=== PATIENT | female | born 1970 | race Caucasian/White ===

== ENCOUNTER 2021-08-18 22:43 | Emergency (ER) | payer MEDICAID ==
[~2021-08-18] VITALS: Ht 167.6 cm; Wt 76.2 kg
[2021-08-18 22:49] VITALS: BP 118/64
--- NOTE | 2021-08-18 22:49 | NUR ---
to bed ambulatory
--- NOTE | 2021-08-18 23:14 | NUR ---
50 YO F BIB SELF WITH C/C OF LOWER ABD PAIN 8/10, SHARP, BURNING [id number]. PT STATES THE PAIN COMES AND GOES. +NAUSEA, PT ALTERNATES BETWEEN CONSTIPATION AND DIARRHEA. DENIES VOMITING. PT STATES SHE HAS AN INCREASE FREQUENCY AND URGENCY TO URINATE, DENIES BURNING BUT HAS A SENSATION. PT STATES SHE WAS TOLD SHE HAS GALLBLADDER STONES. DENIES FEVER. ABD IS SENSITIVE TO TOUCH AND DISTENDED. UA COLLECTED. PT STATES SHE TOOK PYRIDIUM FOR PAIN. DENIES HX, RX, ALLERG, AND LMP
[2021-08-18 23:22] LABS: APPEARANCE,URINE CLEAR (CLEAR); BILIRUBIN,URINE NEGATIVE (NEGATIVE); BLOOD, URINE TRACE-I (NEGATIVE); COLOR,URINE ORANGE (YELLOW); LEUKOCYTE ESTERASE ,URINE TRACE (NEGATIVE); NITRITE, URINE POSITIVE (NEGATIVE); UGLUCOSE TRACE (NEGATIVE)
[2021-08-18] MEDS ORDERED: DICYCLOMINE HCL LIQUID 20 MG, ALUMINUM HYD/MAG/SIMETHICONE 30 ML, LIDOCAINE VISCOUS 2% ... PO ONE ×3 (23:25)
[2021-08-18] MEDS ORDERED: DICYCLOMINE HCL LIQUID 10 MG/5 ML UDC ONE (23:30)
[2021-08-18] MEDS ORDERED: ALUMINUM HYD/MAG/SIMETHICONE 30 ML UDC ONE (23:30)
--- NOTE | 2021-08-18 23:30 | NUR ---
LAB AT BEDSIDE.
[2021-08-18 23:34] LABS: WBC,URINE 0-5 /HPF (0-5)
[2021-08-18 23:38] LABS: BASOPHILS % (AUTO) 0.6 % (0.0-2.0); EOSINOPHILS # (AUTO) 0.2 K/uL (0-0.4); EOSINOPHILS % (AUTO) 3.4 % (0.0-4.0); HEMATOCRIT 34.7 % (36-48); HEMOGLOBIN 11.5 g/dL (12.0-16.0); LYMPHOCYTES # (AUTO) 1.7 K/uL (2.5-16.5); LYMPHOCYTES % (AUTO) 30.1 % (20.5-51.1); MEAN CORPUSCULAR HEMOGLOBIN 30 pg (27-31); MEAN CORPUSCULAR HGB CONC 33 g/dL (33-37); MEAN CORPUSCULAR VOLUME 91.5 fL (80-94); MONOCYTES # (AUTO) 0.5 K/uL (0.8-1.0); MONOCYTES % (AUTO) 8.4 % (1.7-9.3); NEUTROPHILS # (AUTO) 3.2 K/uL (1.8-7.7); NEUTROPHILS % (AUTO) 57.5 % (42.2-75.2); PLATELET COUNT (AUTO) 225 K/uL (140-450); RED CELL DISTRIBUTION WIDTH 13.4 % (11.6-13.7); WHITE BLOOD COUNT (AUTO) 5.5 K/uL (4.8-10.8)
[2021-08-18 23:49] LABS: ALBUMIN 3.5 g/dL (3.4-5.0); ANION GAP 10.6 (8-16); CARBON DIOXIDE 27.1 mmol/L (21-32); CREATININE 0.7 mg/dL (0.6-1.3); POTASSIUM 3.7 mmol/L (3.5-5.1); TOTAL BILIRUBIN 0.4 mg/dL (0.0-1.0)
--- NOTE | 2021-08-18 23:52 | NUR ---
PT IS LAYING BACK IN BED, EQUAL RISE AND FALL OF CHEST WALL, AND EYES CLOSED. OPENS EYES IF SPOKEN TO. PT IS IN STABLE CONDITION. ALL NEEDS MET AT THIS TIME. BED LOCKED IN LOWEST POSITION, SIDE RAILS X1.
--- NOTE | 2021-08-19 00:10 | NUR ---
PT STATED EPIGASTRIC PAIN HAS SUBSIDED. STATES SHE FEELS MUCH BETTER.
--- NOTE | 2021-08-19 01:20 | NUR ---
Dr. Devine examining patient.
[2021-08-19] MEDS ORDERED: SUCR1TAB35 PO (01:25)
[2021-08-19] MEDS ORDERED: OMEP-278 PO (01:25)
[2021-08-19] MEDS ORDERED: CEPH-588 PO (01:25)
[2021-08-19 02:00] VITALS: BP 117/65
--- NOTE | 2021-08-19 02:00 | NUR ---
Patient discharged with v/s stable. Written and verbal after care instructions given and explained. Patient alert, oriented and verbalized understanding of instructions. Ambulatory with steady gait. All questions addressed prior to discharge. ID band removed. Patient advised to follow up with PMD. Rx of KEFLEX, CARAFATE, AND OMEPRAZOLE given. Patient educated on indication of medication including possible reaction and side effects. Opportunity to ask questions provided and answered.
== END 2021-08-19 02:00 | disposition home or self-care (01) ==
LOC: MED 22:43
DX: N39.0 Urinary tract infection, site not specified (principal); R10.13 Epigastric pain
CPT/HCPCS: 36415; 80053; 81001; 83690; 85025; 87086; 99283

== ENCOUNTER 2022-05-16 05:55 | Day surgery (SDC) | payer OTHER ==
[~2022-05-16] VITALS: Ht 165.1 cm; Wt 74.4 kg
[~2022-05-16 05:55] MED LIST: CEPH-588 PO; OMEP-278 PO; SUCR1TAB35 PO
[2022-05-16] MEDS ORDERED: BUPIVACAINE-MPF 0.25% 30 ML VIAL INJ ONE (10:25)
[2022-05-16] MEDS ORDERED: LIDOCAINE/EPI 1% 1:100000 20 ML VIAL INJ ONE (10:25)
[2022-05-16] MEDS ORDERED: PROPOFOL 200 MG/20 ML VIAL IV ONE (10:40)
[2022-05-16] MEDS ORDERED: SEVOFLURANE 250 ML BTL INH ONE (10:43)
[2022-05-16] MEDS ORDERED: ROCURONIUM 50 MG/5 ML VIAL IV ONE (10:44)
[2022-05-16] MEDS ORDERED: fentaNYL citrate 0.05 MG/ML VIAL ONE (10:49)
[2022-05-16] MEDS ORDERED: ONDANSETRON 4 MG/2 ML VIAL ONE (11:32)
[2022-05-16] MEDS ORDERED: KETOROLAC 30 MG/ML VIAL ONE (11:32)
[2022-05-16] MEDS ORDERED: NEOSTIGMINE 1:1000 10 MG/10 ML VIAL ONE (11:59)
[2022-05-16] MEDS ORDERED: GLYCOPYRROLATE 0.2 MG/ML VIAL ONE ×5 (11:59→12:00)
[2022-05-16] MEDS ORDERED: MORPHINE SULFATE 4 MG/ML SYR IV PRN (12:15)
[2022-05-16] MEDS ORDERED: HYDROcodone/APAP 5/325 MG 1 TAB TAB PO PRN (12:15)
[2022-05-16] MEDS ORDERED: MORPHINE SULFATE 2 MG/ML SYR IVP PRN (12:15)
[2022-05-16] MEDS ORDERED: ONDANSETRON 4 MG/2 ML VIAL IV PRN (12:15)
[2022-05-16] MEDS ORDERED: LACTATED RINGERS 1,000 ML IV SCH (12:20)
[2022-05-16] MEDS ORDERED: METOCLOPRAMIDE 10 MG/2 ML INJ VIAL IVP PRN (12:21)
[2022-05-16] MEDS ORDERED: hydrALAZINE 20 MG/ML VIAL IVP PRN (12:22)
[2022-05-16] MEDS ORDERED: LABETALOL 20 MG/4 ML VIAL IVP PRN (12:22)
[2022-05-16] MEDS: HYDROmorphone 1 MG/ML AMP IVP PRN ×4 (12:45→13:15)
[2022-05-16] MEDS ORDERED: HYDROmorphone PFS 2 MG/ML SYR ONE (12:50)
[2022-05-16] MEDS ORDERED: ACET-8386 PO (14:30)
== END 2022-05-16 14:25 | disposition home or self-care (01) ==
LOC: MDS 05:55 → MMU 06:05 → MDS 14:25
PROVIDERS: ATTEND Surgery
DX: K80.10 Calculus of gallbladder with chronic cholecystitis without obstruction (principal); K42.9 Umbilical hernia without obstruction or gangrene; M19.90 Unspecified osteoarthritis, unspecified site; F32.9 Major depressive disorder, single episode, unspecified; Z85.41 Personal history of malignant neoplasm of cervix uteri; R16.0 Hepatomegaly, not elsewhere classified; Z90.710 Acquired absence of both cervix and uterus; Z79.899 Other long term (current) drug therapy; Z20.822 Contact with and (suspected) exposure to COVID-19
CPT/HCPCS: 36415; 47562; 49585; 71045; 82374; 86886; 86900; 86901; 87426; J0690; J1170; J1885; J2001; J2405; J2704; J2710; J3010; J3490; J7030; J7060; Q0092

== ENCOUNTER 2022-12-22 12:18 | Emergency (ER) | payer OTHER ==
[~2022-12-22] VITALS: Ht 160 cm; Wt 77.1 kg
[~2022-12-22 12:18] MED LIST changes: +ACET-8905 PO
[2022-12-22 12:22] VITALS: BP 110/65
[2022-12-22] MEDS ORDERED: KETOROLAC 30 MG/ML VIAL IM ONE (13:00)
--- NOTE | 2022-12-22 13:39 | NUR ---
52 y/o female bib self c/o left sided headache, neck pain and arm painx2 weeks. denies trauma/injury, denies any nvd, cp, abd pain, respirations even and unlabored. has been taking motrin for pain with minimal relief, denies any trauma/injury nka pmh: denies
[2022-12-22] MEDS ORDERED: LIDO1ADH38 TP (13:41)
--- NOTE | 2022-12-22 13:45 | NUR ---
Patient discharged with v/s stable. Written and verbal after care instructions ABOUT MUSCULOSKELETAL PAIN given and explained. Patient alert, oriented and verbalized understanding of instructions. Ambulatory with steady gait. All questions addressed prior to discharge. ID band removed. Patient advised to follow up with PMD. Rx of ZTLIDO given. Patient educated on indication of medication including possible reaction and side effects. Opportunity to ask questions provided and answered.
== END 2022-12-22 13:45 | disposition home or self-care (01) ==
LOC: MED 12:18
DX: S46.912A Strain of unspecified muscle, fascia and tendon at shoulder and upper arm level, left arm, initial encounter (principal); X58.XXXA Exposure to other specified factors, initial encounter; Y93.89 Activity, other specified; Y92.89 Other specified places as the place of occurrence of the external cause; Y99.8 Other external cause status
CPT/HCPCS: 96372; 99283; J1885